=== PATIENT | female | born 1985 | race Caucasian/White ===

== ENCOUNTER 2016-11-24 19:01 | Emergency (ER) | payer SELFPAY | END 2016-11-24 19:50 | disposition home or self-care (01) | LOC: ER1 19:01 | DX: S93.491A Sprain of other ligament of right ankle, initial encounter (principal); F17.210 Nicotine dependence, cigarettes, uncomplicated; W01.0XXA Fall on same level from slipping, tripping and stumbling without subsequent striking against object, initial encounter; Y92.69 Other specified industrial and construction area as the place of occurrence of the external cause; Y99.0 Civilian activity done for income or pay | CPT/HCPCS: 73590; 73610; 73630; 99283 ==